=== PATIENT | female | born 1970 | race Caucasian/White ===

== ENCOUNTER → 2025-07-02 | Outpatient (CLI) | payer OTHER, SELFPAY ==
--- NOTE | 2025-07-02 09:52 | RAD_ITS ---
PROCEDURE: KNEE 4 OR MORE VIEWS 07/02/2025 REASON FOR EXAM: PSORIATIC ARTHROPATHY TECHNIQUE: Procedure Code: RADKN Modality: DX Procedure: KNEE 4 OR MORE VIEWS Right knee four views COMPARISON: None FINDINGS: There is moderate to severe osteoarthritis in the medial compartment with joint space narrowing and marginal osteophytes. There is no fracture or dislocation. There is a small visible effusion. Mineralization is normal. There is no visible atherosclerosis. RAD/Knee 4 or More Views IMPRESSION: There is moderate to severe osteoarthritis in the medial compartment with joint space narrowing and marginal osteophytes. Reading Location: [facility]
--- NOTE | 2025-07-02 09:52 | RAD_ITS ---
PROCEDURE: KNEE 4 OR MORE VIEWS 07/02/2025 REASON FOR EXAM: PSORIATIC ARTHROPATHY TECHNIQUE: Procedure Code: RADKN Modality: DX Procedure: KNEE 4 OR MORE VIEWS Laterality: Left knee four views COMPARISON: None FINDINGS: There is moderate medial joint space narrowing. There is osteophyte formation at the medial articular surfaces. There is no fracture or dislocation. There is no significant effusion. Mineralization is normal. There is no visible atherosclerosis. RAD/Knee 4 or More Views IMPRESSION: There is moderate osteoarthritis in the medial compartment. Reading Location: [facility]
[2025-07-02 12:25] LABS: Hematocrit 43.8 % (37-47); Hemoglobin 14.4 g/dL (12.0-15.0); Immature Granulocytes Count 0.060 X10^3/uL (0.0-0.0); Mean Corp Hgb Conc 32.9 g/dL (32-36); Mean Corpuscular Volume 89.8 fL (81-99); Mean Platelet Vol. 9.4 fl (6.2-12.0); NRBC Flagged by Analyzer 0 % (0-5); Platelet Count 363 K/mm3 (150-450); RBC Distribution Width CV 13.2 % (11.6-14.6); RBC Distribution Width SD 43.3 fl (35.1-43.9); Red Blood Count 4.88 M/mm3 (4.2-5.4); White Blood Count 11.7 K/mm3 (4.4-11.0)
[2025-07-02 14:00] LABS: CRP 3.93 mg/L (0.0-3.0); Hepatitis B Surface Antigen Nonreactive (Nonreactive); Hepatitis C Antibody Nonreactive (Nonreactive)
[2025-07-02 14:13] LABS: AST(SGOT) 23 U/L (<=31); Alanine Aminotransfer ALT/SGPT 21 U/L (<=34); Albumin, Serum 4.4 g/dL (3.5-5.0); Alkaline Phosphatase 78 U/L (35-104); Anion Gap 12 (5-15); BUN 10 mg/dL (4-19); BUN/Creat Ratio 14.2 RATIO (10-20); Calcium,Total 9.8 mg/dL (7.6-11.0); Carbon Dioxide 25.7 mmol/L (21.0-32.0); Chloride 101 mmol/L (98-108); Globulin 2.6 g/dL (2.2-4.2); Glucose 89 mg/dL (70-99); Potassium 4.5 mmol/L (3.3-5.1)
== END | disposition home or self-care (01) ==
PROVIDERS: Referring Provider Internal Medicine Rheumatology; Visit Provider Internal Medicine Rheumatology
DX: L40.59 Other psoriatic arthropathy (principal); Z79.899 Other long term (current) drug therapy; L40.8 Other psoriasis; Z87.11 Personal history of peptic ulcer disease; M21.41 Flat foot [pes planus] (acquired), right foot
CPT/HCPCS: 36415; 73564; 80053; 85025; 85652; 86038; 86140; 86200; 86431; 86706; 86803; 87340